=== PATIENT | female | born 1980 | race African-American/Black ===

== ENCOUNTER → 2019-10-11 | Outpatient (CLI) | payer OTHER ==
[2019-10-12 02:08] LABS: FSH 44.1 mIU/mL (.); PROLACTIN 11.1 ng/mL (4.8-23.3)
== END | disposition home or self-care (01) ==
LOC: LAB 16:15
PROVIDERS: ATTEND Obstetrics & Gynecology
DX: N92.6 Irregular menstruation, unspecified (principal)
CPT/HCPCS: 36415; 82672; 83001; 84146; 84443

== ENCOUNTER 2019-12-19 10:13 | Day surgery (SDC) | payer OTHER ==
[~2019-12-19 10:13] MED LIST: CIPROFLOXACIN 0.3% OPHTH SOLUTION 5ML BOTTLE. OS ONE; HYDROmorphone 2 MG/ML VIAL IV PRN; IV RINGERS,LACTATED 1000ML 1,000 ML IV SCH; LIDOCAINE 2% JELLY 6ML IN APPLICATOR. OS ONE; MORPHINE SULFATE 2 MG/ML VIAL. IV PRN; ONDANSETRON PF 4 MG/2 ML VIAL. IV PRN; PROCHLORPERAZINE 10 MG/2 ML VIAL. IV PRN; PROPARACAINE 0.5% OPHTH SOLUTION 15ML BOTTLE. OS ONE; fentaNYL PF VIAL 100 MCG/2 ML VIAL IV PRN
[2019-12-19] MEDS: PHENYLEPHRINE 10% OPHTH SOLUTION 5ML BOTTLE. OS SCH ×3 (11:15→11:25)
[2019-12-19] MEDS: CYCLOPENTOLATE 1% OPTH SOLUTION 2ML BOTTLE. OS SCH ×3 (11:15→11:25)
[2019-12-19] MEDS ORDERED: LIDOCAINE 1% PF 2 ML VIAL. ONE (11:37)
[2019-12-19] MEDS ORDERED: CHONDROITIN-SOD-HYALURONATE 0.5 ML DISP.SYRIN. ONE (11:38)
[2019-12-19] MEDS ORDERED: CHONDROIT-SOD-HYALURONATE KIT. ONE (11:38)
[2019-12-19] MEDS ORDERED: GLYCOPYRROLATE 1 MG/5 ML VIAL. ONE (12:37)
[2019-12-19 13:06] VITALS: BP 121/68
--- NOTE | 2019-12-19 13:16 | OP ---
DATE OF SURGERY: 12/19/2019 PREOPERATIVE DIAGNOSIS: Incipient cataract of the left eye. PROCEDURE: Phacoemulsification with posterior chamber intraocular lens implantation of the left eye with trypan blue staining. SURGEON: Orville Rivera MD ANESTHESIA: Topical with monitored anesthesia care. DESCRIPTION OF PROCEDURE: The left eye was prepped with betadine with the usual sterile fashion and drape. A paracentesis was performed followed by instillation of phenylephrine admixed with balanced salt solution and lidocaine. Trypan blue was used to stain the anterior capsule and evacuated with a viscoelastic. A temporal clear corneal incision was made followed by adequate visualization for the capsulorrhexis. Hydrodissection was used to prolapse the nucleus at the pupillary plane and it was evacuated with the phacoemulsification handpiece. The I/A handpiece was used to remove the remainder of the cortex and bimanual irrigation and aspiration was necessary due to the extensive posterior subcapsular subincisional cortex. Once the capsular had been cleared, an Jese model SN60WF with a power of 25.0 diopters placed into the capsular bag. Balanced salt solution was used to hydrate the corneal wounds and the viscoelastic evacuated with the I/A handpiece. Once no leak was noted, the eye was shielded and the patient was sent to the recovery room uneventfully. ORVILLE RIVERA MD DR: CARLOS/fredy JOB#: [id number] / [id number]
== END 2019-12-19 13:51 | disposition home or self-care (01) ==
LOC: SURG 10:13
PROVIDERS: ATTEND Ophthalmology
DX: H25.092 Other age-related incipient cataract, left eye (principal); E78.00 Pure hypercholesterolemia, unspecified; E66.9 Obesity, unspecified; Z68.36 Body mass index [BMI] 36.0-36.9, adult; Z72.89 Other problems related to lifestyle
CPT/HCPCS: 66982; 81025; C1780; J0171; J0690; J1580; J3490

== ENCOUNTER 2020-01-02 10:20 | Day surgery (SDC) | payer OTHER ==
[~2020-01-02] VITALS: Ht 152.4 cm; Wt 83.9 kg
[~2020-01-02 10:20] MED LIST changes: +CIPROFLOXACIN 0.3% OPHTH SOLUTION 5ML BOTTLE. OD ONE; -CIPROFLOXACIN 0.3% OPHTH SOLUTION 5ML BOTTLE. OS ONE; +LIDOCAINE 1% PF 2 ML VIAL. ID PRN; +LIDOCAINE 2% JELLY 6ML IN APPLICATOR. OD ONE; -LIDOCAINE 2% JELLY 6ML IN APPLICATOR. OS ONE; +LIPITOR80 MG PO; +PROPARACAINE 0.5% OPHTH SOLUTION 15ML BOTTLE. OD ONE; -PROPARACAINE 0.5% OPHTH SOLUTION 15ML BOTTLE. OS ONE
[2020-01-02] MEDS: PHENYLEPHRINE 10% OPHTH SOLUTION 5ML BOTTLE. OD SCH ×3 (11:17→11:31)
[2020-01-02] MEDS: CYCLOPENTOLATE 1% OPTH SOLUTION 2ML BOTTLE. OD SCH ×3 (11:17→11:31)
[2020-01-02] MEDS ORDERED: CHONDROIT-SOD-HYALURONATE KIT. ONE (11:32)
[2020-01-02] MEDS ORDERED: BACITRACIN/POLYMYXIN B OPHTH OINTMENT 3.5GM TUBE. ONE (11:32)
[2020-01-02] MEDS ORDERED: LIDOCAINE 1% PF 2 ML VIAL. ONE (11:32)
[2020-01-02] MEDS ORDERED: CHONDROITIN-SOD-HYALURONATE 0.5 ML DISP.SYRIN. ONE (11:32)
[2020-01-02 13:00] VITALS: BP 142/84
--- NOTE | 2020-01-02 13:31 | OP ---
DATE OF SURGERY: 01/02/2020 PREOPERATIVE DIAGNOSIS: Cataract of the right eye. PROCEDURE: Phacoemulsification with posterior chamber intraocular lens implantation of the right eye. INDICATION: Painless progressive visual loss and visually significant cataract with difficulty reading. SURGEON: Miguel Wan MD ANESTHESIA: Topical with monitored anesthesia care. DESCRIPTION OF PROCEDURE: The right eye was prepped with Betadine in the usual sterile fashion and draped. A paracentesis was performed followed by instillation of preservative-free phenylephrine admixed with lidocaine and balanced salt solution. A temporal clear corneal incision was made followed by filling of the anterior chamber with Viscoat. A capsulorrhexis was performed followed by hydrodissection and prolapse of the soft nucleus to the pupillary plane, which was sandwiched with Viscoat. The phacoemulsification handpiece was used and irrigation only to remove the nucleus and the I/A handpiece was used to remove the remainder of the cortex along with capsule polishing. Viscoelastic was then entered into the anterior chamber. An [place] model SN60WF with a power of 26.5 diopters was placed into the capsular bag. Balanced salt solution was used to hydrate the corneal wounds and the viscoelastic evacuated with the I/A handpiece. Once no leak was noted, Maxitrol was placed on the eye and the eye shielded and the patient was sent to the recovery room uneventfully. ORVILLE WELLER MD DR: CARLOS/fredy JOB#: [id number] / [id number]
== END 2020-01-02 13:25 | disposition home or self-care (01) ==
LOC: SURG 10:20
PROVIDERS: ATTEND Ophthalmology
DX: H26.9 Unspecified cataract (principal); E78.00 Pure hypercholesterolemia, unspecified; Z98.42 Cataract extraction status, left eye; Z72.89 Other problems related to lifestyle
CPT/HCPCS: 66984; 81025; C1780; J0171; J0690; J1580

== ENCOUNTER → 2020-01-15 | Outpatient (CLI) | payer OTHER ==
[2020-01-02 13:00] VITALS: BP 142/84
[~2020-01-15] MED LIST changes: -CIPROFLOXACIN 0.3% OPHTH SOLUTION 5ML BOTTLE. OD ONE; -HYDROmorphone 2 MG/ML VIAL IV PRN; -IV RINGERS,LACTATED 1000ML 1,000 ML IV SCH; -LIDOCAINE 1% PF 2 ML VIAL. ID PRN; -LIDOCAINE 2% JELLY 6ML IN APPLICATOR. OD ONE; -MORPHINE SULFATE 2 MG/ML VIAL. IV PRN; -ONDANSETRON PF 4 MG/2 ML VIAL. IV PRN; -PROCHLORPERAZINE 10 MG/2 ML VIAL. IV PRN; -PROPARACAINE 0.5% OPHTH SOLUTION 15ML BOTTLE. OD ONE; -fentaNYL PF VIAL 100 MCG/2 ML VIAL IV PRN
[2020-01-15 07:47] LABS: BASO % 1 % (0-3); EOS # 0.2 x10^3/uL (0.0-0.7); EOS % 2 % (0-3); HEMATOCRIT 43.1 % (36.0-47.0); HEMOGLOBIN 14.8 g/dL (12.0-15.5); LYMPH # 1.8 x10^3/uL (1.0-4.8); LYMPH % 25 % (24-48); MEAN CORPUSCULAR HEMOGLOBIN 30 pg (25-35); MEAN CORPUSCULAR HGB CONC 34 g/dL (31-37); MEAN CORPUSCULAR VOLUME 89 fL (79-100); MONO # 0.8 x10^3/uL (0.0-1.1); MONO % 11 % (0-9); NEUT # 4.4 x10^3/uL (1.8-7.7); NEUT % 61 % (31-73); PLATELET COUNT 226 x10^3/uL (140-400); RED BLOOD COUNT 4.88 x10^6/uL (3.50-5.40); RED CELL DISTRIBUTION WIDTH 14.6 % (11.5-14.5); WHITE BLOOD COUNT 7.2 x10^3/uL (4.0-11.0)
[2020-01-15 08:23] LABS: ALBUMIN/GLOBULIN RATIO 1.2 (1.0-1.7); CALCIUM 9.4 mg/dL (8.5-10.1); CREATININE 0.8 mg/dL (0.6-1.0); GFR 95.6; POTASSIUM 4.8 mmol/L (3.5-5.1); TOTAL BILIRUBIN 0.6 mg/dL (0.2-1.0); TOTAL PROTEIN 7.3 g/dL (6.4-8.2)
[2020-01-15 08:33] LABS: CHOLESTEROL/HDL RATIO 2.3
[2020-01-15 08:35] LABS: FREE T4 1.22 ng/dL (0.76-1.46); THYROID STIM HORMONE (TSH) 2.078 uIU/mL (0.358-3.74)
[2020-01-16 00:07] LABS: HEMOGLOBIN A1C 6.1 % (4.8-5.6)
== END | disposition home or self-care (01) ==
LOC: LAB 06:16
PROVIDERS: ATTEND Family Medicine
DX: R73.02 Impaired glucose tolerance (oral) (principal); E78.5 Hyperlipidemia, unspecified; N93.9 Abnormal uterine and vaginal bleeding, unspecified
CPT/HCPCS: 36415; 80053; 80061; 83036; 84439; 84443; 85025

== ENCOUNTER → 2020-12-20 | Outpatient (CLI) | payer OTHER ==
[2020-12-20 08:38] LABS: BASO % 1 % (0-3); EOS # 0.3 x10^3/uL (0.0-0.7); EOS % 3 % (0-3); HEMATOCRIT 44.1 % (36.0-47.0); HEMOGLOBIN 14.9 g/dL (12.0-15.5); LYMPH % 25 % (24-48); MEAN CORPUSCULAR HEMOGLOBIN 30 pg (25-35); MEAN CORPUSCULAR HGB CONC 34 g/dL (31-37); MEAN CORPUSCULAR VOLUME 88 fL (79-100); MONO # 0.8 x10^3/uL (0.0-1.1); MONO % 10 % (0-9); NEUT % 62 % (31-73); PLATELET COUNT 227 x10^3/uL (140-400); RED CELL DISTRIBUTION WIDTH 13.8 % (11.5-14.5); WHITE BLOOD COUNT 8.1 x10^3/uL (4.0-11.0)
[2020-12-20 08:49] LABS: ALBUMIN 3.8 g/dL (3.4-5.0); CREATININE 0.9 mg/dL (0.6-1.0); GFR 83.1; POTASSIUM 4.3 mmol/L (3.5-5.1); TOTAL BILIRUBIN 0.5 mg/dL (0.2-1.0); TOTAL PROTEIN 7.8 g/dL (6.4-8.2)
[2020-12-20 08:57] LABS: CHOLESTEROL/HDL RATIO 2.1
[2020-12-21 04:48] LABS: HEMOGLOBIN A1C 6.5 % (4.8-5.6)
== END ==
LOC: LAB 01:30
PROVIDERS: ATTEND Family Medicine
DX: E78.5 Hyperlipidemia, unspecified (principal); R73.02 Impaired glucose tolerance (oral); L65.9 Nonscarring hair loss, unspecified
CPT/HCPCS: 36415; 80053; 80061; 83036; 84443; 85025

== ENCOUNTER → 2022-01-25 | Outpatient (CLI) | payer OTHER ==
[2022-01-25 01:17] LABS: BASO # 0.1 x10^3/uL (0.0-0.2); BASO % 1 % (0-3); EOS # 0.2 x10^3/uL (0.0-0.7); EOS % 2 % (0-3); HEMATOCRIT 44.7 % (36.0-47.0); HEMOGLOBIN 14.6 g/dL (12.0-15.5); LYMPH % 22 % (24-48); MEAN CORPUSCULAR HEMOGLOBIN 30 pg (25-35); MEAN CORPUSCULAR HGB CONC 33 g/dL (31-37); MEAN CORPUSCULAR VOLUME 91 fL (79-100); MONO # 0.9 x10^3/uL (0.0-1.1); MONO % 10 % (0-9); NEUT % 66 % (31-73); PLATELET COUNT 226 x10^3/uL (140-400); RED BLOOD COUNT 4.94 x10^6/uL (3.50-5.40); RED CELL DISTRIBUTION WIDTH 14.6 % (11.5-14.5); WHITE BLOOD COUNT 9.1 x10^3/uL (4.0-11.0)
[2022-01-25 01:38] LABS: ALBUMIN 3.9 g/dL (3.4-5.0); CREATININE 0.9 mg/dL (0.6-1.0); GFR 82.7; TOTAL BILIRUBIN 0.6 mg/dL (0.2-1.0); TOTAL PROTEIN 7.7 g/dL (6.4-8.2)
[2022-01-26 00:08] LABS: HEMOGLOBIN A1C 7.1 % (4.8-5.6)
== END ==
LOC: LAB 00:23
PROVIDERS: ATTEND Family Medicine
DX: E11.9 Type 2 diabetes mellitus without complications (principal); E78.5 Hyperlipidemia, unspecified
CPT/HCPCS: 36415; 80053; 80061; 83036; 85025